=== PATIENT | female | born 1965 | race Caucasian/White ===

== ENCOUNTER 2019-04-14 11:40 | Emergency (ER) | payer MEDICAID, OTHER ==
[~2019-04-14] VITALS: Ht 157.5 cm; Wt 43.1 kg
[~2019-04-14 11:40] MED LIST: AMPH30TA3 PO; LEVO150T8 PO
[2019-04-14] MEDS ORDERED: IV NORMAL SALINE 1000 ML BAG IV ONE (12:00)
[2019-04-14] MEDS ORDERED: diphenhydrAMINE 50 MG/1 ML VIAL IV ONE (12:00)
[2019-04-14] MEDS ORDERED: METOCLOPRAMIDE HCL 10 MG/2 ML VIAL IV ONE (12:00)
[2019-04-14] MEDS ORDERED: diphenhydrAMINE 50 MG/1 ML VIAL ONE (12:09)
[2019-04-14] MEDS ORDERED: METOCLOPRAMIDE HCL 10 MG/2 ML VIAL ONE (12:10)
[2019-04-14 12:15] LABS: BASOPHILS % (AUTO) 0.7 % (0.0-2.0); EOSINOPHILS # (AUTO) 0.1 K/uL (0.0-0.7); EOSINOPHILS % (AUTO) 1.5 % (0.0-7.0); HEMOGLOBIN 12.1 g/dL (10.9-14.3); LYMPHOCYTES # (AUTO) 0.8 K/uL (20.0-40.0); LYMPHOCYTES % (AUTO) 13.7 % (20.5-51.5); MEAN CORPUSCULAR HEMOGLOBIN 27.6 uug (24.7-32.8); MEAN CORPUSCULAR HGB CONC 33 g/dL (32.3-35.6); MEAN CORPUSCULAR VOLUME 84.1 fL (75.5-95.3); MONOCYTES # (AUTO) 0.3 K/uL (2.0-10.0); NEUTROPHILS # (AUTO) 4.7 K/uL (1.8-8.9); NEUTROPHILS % (AUTO) 79.1 % (38.5-71.5); PLATELET COUNT (AUTO) 260 K/uL (179-408); WHITE BLOOD COUNT (AUTO) 5.9 K/uL (3.8-11.8)
[2019-04-14 12:22] LABS: CREATININE 0.6 mg/dL (0.6-1.3); POTASSIUM 4.1 mmol/L (3.5-5.1)
[2019-04-14] MEDS ORDERED: MORPHINE SULFATE 2 MG/1 ML DISP.SYRIN IV ONE (12:45)
[2019-04-14] MEDS ORDERED: MORPHINE SULFATE 2 MG/1 ML DISP.SYRIN ONE (12:50)
[2019-04-14] MEDS ORDERED: MORPHINE SULFATE 4 MG/1 ML DISP.SYRIN IV ONE (13:45)
[2019-04-14] MEDS ORDERED: MORPHINE SULFATE 4 MG/1 ML DISP.SYRIN ONE (13:47)
[2019-04-14 13:58] LABS: CSF GLUCOSE 59 mg/dL (40-70); CSF PROTEIN 45 mg/dL (15-45)
[2019-04-14] MEDS ORDERED: HYDROMORPHONE 1 MG/1 ML DISP.SYRIN ONE ×2 (14:08→15:00)
[2019-04-14] MEDS ORDERED: ONDANSETRON 4 MG/2 ML VIAL ONE (14:09)
[2019-04-14] MEDS ORDERED: ONDANSETRON 4 MG/2 ML VIAL IV ONE (14:15)
[2019-04-14] MEDS ORDERED: HYDROMORPHONE 1 MG/1 ML DISP.SYRIN IV ONE ×2 (14:15→15:00)
--- NOTE | 2019-04-14 16:00 | NUR ---
Patient discharged to home in stable conditon. Written and verbal after care instructions given. Patient verbalizes understanding of instructions.
== END 2019-04-14 16:00 | disposition home or self-care (01) ==
LOC: ER 11:40
DX: G43.909 Migraine, unspecified, not intractable, without status migrainosus (principal); E03.9 Hypothyroidism, unspecified; Z79.899 Other long term (current) drug therapy
CPT/HCPCS: 36415; 62270; 70450; 80048; 82945; 84157; 84443; 85025; 87070; 87205; 89051 ×2; 96374; 96375; 96376; 99284; J1170 ×2; J1200; J2270 ×2; J2405; J2765; A4663; J7030

== ENCOUNTER → 2023-07-04 | Emergency (ER) | payer OTHER ==
[~2023-07-04] VITALS: Ht 157.5 cm; Wt 43.1 kg
[~2023-07-04] MED LIST changes: +ESCI5TAB PO; +HYDR-4209 PO; +HYDROCODONE/APAP 5-325MG TABLET ONE; +HYDROCODONE/APAP 5-325MG TABLET PO ONE; +MORPHINE SULFATE 4 MG/1 ML DISP.SYRIN IV ONE; +MORPHINE SULFATE 4 MG/1 ML DISP.SYRIN ONE; +ONDANSETRON 4 MG/2 ML VIAL IV ONE; +ONDANSETRON 4 MG/2 ML VIAL ONE
[2023-07-04 10:49] VITALS: O2SAT 98
== END | disposition home or self-care (01) ==
LOC: ER 10:38
DX: S72.441A Displaced fracture of lower epiphysis (separation) of right femur, initial encounter for closed fracture (principal); G43.909 Migraine, unspecified, not intractable, without status migrainosus; E03.9 Hypothyroidism, unspecified; Z79.899 Other long term (current) drug therapy; V89.2XXA Person injured in unspecified motor-vehicle accident, traffic, initial encounter; Y93.89 Activity, other specified; Y92.89 Other specified places as the place of occurrence of the external cause; Y99.8 Other external cause status
CPT/HCPCS: 29505; 73564; 73700; 96374; 96375; 99285; J2270; J2405; A4606; A4663